=== PATIENT | male | born 1990 | race Two or more races ===

== ENCOUNTER 2025-04-01 19:46 | Emergency (ER) | payer OTHER ==
[2025-04-01 20:18] LABS: BASOPHILS ABSOLUTE AUTO 0.0 x10^3/uL (0.0-0.2); BASOPHILS PERCENT AUTO 0.3 % (0.2-1.2); EOSINOPHILS ABSOLUTE AUTO 0.3 x10^3/uL (0.0-0.5); EOSINOPHILS PERCENT AUTO 2.3 % (0.0-4.0); IMMATURE GRAN ABSOLUTE AUTO 0.26 x10^3/uL (0.00-0.07); IMMATURE GRAN PERCENT AUTO 1.90 % (0.00-0.43); LYMPHOCYTES ABSOLUTE AUTO 3.8 x10^3/uL (1.0-4.8); LYMPHOCYTES PERCENT AUTO 27.4 % (25.0-50.0); MONOCYTES ABSOLUTE AUTO 1.5 x10^3/uL (0.0-0.8); MONOCYTES PERCENT AUTO 10.5 % (2.0-11.0); NEUTROPHILS ABSOLUTE AUTO 7.9 x10^3/uL (1.8-7.7); NEUTROPHILS PERCENT AUTO 57.6 % (50.0-80.0); PLATELET COUNT,PLT 240 x10^3/uL (130-400); RED BLOOD CELL COUNT 4.57 x10^6/uL (4.5-6.0); WHITE BLOOD CELL COUNT,WBC 13.8 x10^3/uL (4.0-10.0)
[2025-04-01 20:46] LABS: A/G RATIO 1.05; ALANINE AMINOTRANSFERASE,ALT 88 U/L (16-63); ASPARTATE AMNIOTRANSFERASE,AST 57 U/L (15-37); BILIRUBIN TOTAL 0.2 mg/dL (0.2-1.0); BLOOD UREA NITROGEN,BUN 18 mg/dL (7-18); CARBON DIOXIDE,CO2 23 mmol/L (21-32); CHLORIDE,CL 101 mmol/L (98-107); CREATININE 1.3 mg/dL (0.70-1.30); EST CRCL DRUG DOSING (CG) 60.08 mL/min; ESTIMATED GFR 73 mL/min (>=60); GLUCOSE RANDOM 110 mg/dL (70-99); POTASSIUM,K 4.3 mmol/L (3.5-5.1); PROTEIN TOTAL,TP 8.4 g/dL (6.4-8.2); SODIUM,NA 136 mmol/L (136-145)
[2025-04-01] MEDS: Take Home: Albuterol 18 GM Inhaler, 1 Inhaler Pack INH PRN (20:57)
[2025-04-01] MEDS: Take Home: predniSONE 20 MG, 2 Tab Pack PO ONE (20:58)
[2025-04-01] MEDS: Take Home: Doxycycline 100 MG Cap, 4 Cap Pack PO ONE (20:58)
== END 2025-04-01 21:07 ==
LOC: VM.ED 19:46 → SUPCPDRO 19:46 → VM.ED 21:07
DX: J40 Bronchitis, not specified as acute or chronic (principal); Z88.2 Allergy status to sulfonamides; Z79.899 Other long term (current) drug therapy
CPT/HCPCS: 36415; 71046; 80053; 83605; 85025; 86140; 87428-QW; 94640; 99283; 99285; A9270-GY; J7512